=== PATIENT | female | born 1950 | race Caucasian/White ===

== ENCOUNTER → 2016-09-24 | Outpatient (CLI) | payer BC, OTHER ==
[~2016-09-24] MED LIST: ALBUAER2 INH; ASPCH81X PO; CHOL100010 PO; FURO20TA PO; LOSA1TAB PO; METO50TA7 PO; PANT40TA PO; POTA10TA PO; SPIR25TA PO
--- NOTE | 2016-09-24 11:47 | DIAGNOSTIC IMAGING REPORT ---
ULTRASOUND VENOUS DOPPLER LWR EXT BILA CLINICAL HISTORY: Bilateral leg swelling COMPARISON STUDY: No previous studies for comparison. FINDINGS: Real-time and color flow Doppler imaging were performed. Flow was seen within the femoral, popliteal and calf veins with no intraluminal thrombus demonstrated. The saphenous vein is patent. IMPRESSION: No evidence of lower extremity DVT. Electronically signed by: Lonny Bryan M.D. 09/24/2016 11:46 AM Dictated Date/Time: 09/24/2016 11:45 AM
--- NOTE | 2016-09-24 11:50 | DIAGNOSTIC IMAGING REPORT ---
Ultrasound right ankle RIGHT EXTREMITY NONVASCULAR LIMITED CLINICAL HISTORY: EDEMA/ANKLE MASS Right edema TECHNIQUE: Ultrasound COMPARISON STUDY: None FINDINGS: Soft tissue edema with a trace amount of free fluid at the medial aspect of the right ankle. A significant drainable abscess or collection is not appreciated. The small fluid pocket measures 1.4 x 0.3 cm. IMPRESSION: Generalized soft tissue edema about the right ankle with moderate fluid within the soft tissues adjacent to the medial malleolus. Electronically signed by: Andrez Saba M.D. 09/24/2016 11:49 AM Dictated Date/Time: 09/24/2016 11:47 AM
--- NOTE | 2016-09-24 11:52 | DIAGNOSTIC IMAGING REPORT ---
LEFT ANKLE SWELLING CLINICAL HISTORY: EDEMA/ANKLE MASS COMPARISON STUDY: No previous studies for comparison. FINDINGS: Ultrasonographic evaluation of the soft tissues of the left ankle were performed with attention to the areas of reported swelling. No ultrasonographic masses were delineated. If a clinically suspicious mass is palpated, an MRI could be obtained in follow-up. IMPRESSION: No focal masses or fluid collections were visualized ultrasonographically. Electronically signed by: Lonny Bryan M.D. 09/24/2016 11:50 AM Dictated Date/Time: 09/24/2016 11:48 AM
== END | disposition home or self-care (01) ==
LOC: C.ULTRBC 10:20
PROVIDERS: ATTEND Internal Medicine
DX: R22.43 Localized swelling, mass and lump, lower limb, bilateral (principal)

== ENCOUNTER → 2016-10-11 | Outpatient (CLI) | payer OTHER ==
[2016-10-11 13:28] LABS: BASO % 1.1 %; BASO ABS # 0.05 K/uL (0-0.2); EOS % 2.4 %; HEMATOCRIT 35.4 % (37-47); IG% 0.2 %; LYMPH % 33.7 %; LYMPH ABS # 1.55 K/uL (1.2-3.4); MEAN CELL VOLUME 66.5 fL (80-100); MEAN CORPUSCULAR HEMOGLOBIN 21.2 pg (25-34); MEAN CORPUSCULAR HGB CONC 31.9 g/dl (32-36); MONO % 12.4 %; NEUT % 50.2 %; PLATELET COUNT 236 K/uL (130-400); RED BLOOD COUNT 5.32 M/uL (4.2-5.4)
[2016-10-11 13:48] LABS: C-REACTIVE PROTEIN < 0.29 mg/dl (0-0.29); RHEUMATOID FACTOR < 10.0 U/mL (0-15)
[2016-10-11 14:02] LABS: COMPLETE YES; MICROCYTOSIS PRESENT; OVALOCYTES 1+
[2016-10-11 15:00] LABS: LYME DISEASE AB IGG NEG (NEG)
[2016-10-11 15:04] LABS: LYME DISEASE AB IGM NEG (NEG)
[2016-10-14 20:19] LABS: HLA-B27** TC 528X NEGATIVE (NEGATIVE)
== END | disposition home or self-care (01) ==
LOC: C.LABBC 09:34
PROVIDERS: ATTEND Orthopaedic Surgery Sports Medicine
DX: M25.572 Pain in left ankle and joints of left foot (principal); M25.571 Pain in right ankle and joints of right foot; R60.0 Localized edema

== ENCOUNTER → 2016-10-16 | Outpatient (CLI) | payer OTHER ==
--- NOTE | 2016-10-16 09:37 | DIAGNOSTIC IMAGING REPORT ---
RIGHT LOWER EXT JOINT WITHOUT CLINICAL HISTORY: RT ANKLE PAIN/SWELLING Right pain. Edema. TECHNIQUE: Multiaxial MRI acquisition COMPARISON STUDY: None FINDINGS: Signal characteristics the osseous structures are unremarkable. Minimal degenerative changes of the intertarsal joints. Medial and lateral collateral ligament structures are intact. Articular services appears intact the level of the talar dome. All components of the medial aspect of the ankle. A be intact. There are findings of moderate tendinopathy of the peroneal tendon. This shows a potential small partial intrasubstance tear at its distal margin. Air is no evidence for complete tear. Moderate edematous change of the interosseous ligament of the subtalar joint. Minimal reactive soft tissue edema about the ankle. IMPRESSION: 1. Moderate peroneal tendinopathy 2. Small partial intrasubstance tear as distal aspect. 3. No evidence for full-thickness tear 4. Minimal reactive soft tissue edema The above report was generated using voice recognition software. It may contain grammatical, syntax or spelling errors. Electronically signed by: Andrez Saba M.D. 10/16/2016 9:36 AM Dictated Date/Time: 10/16/2016 9:31 AM
== END | disposition home or self-care (01) ==
LOC: C.MRIBC 08:44
PROVIDERS: ATTEND Orthopaedic Surgery
DX: M25.571 Pain in right ankle and joints of right foot (principal); M76.71 Peroneal tendinitis, right leg; S86.311A Strain of muscle(s) and tendon(s) of peroneal muscle group at lower leg level, right leg, initial encounter; X58.XXXA Exposure to other specified factors, initial encounter

== ENCOUNTER → 2017-03-26 | Outpatient (CLI) | payer OTHER ==
[~2017-03-26] MED LIST changes: +GADAVIST IV PRN; -METO50TA7 PO; +METO50TA8 PO
--- NOTE | 2017-03-26 14:31 | DIAGNOSTIC IMAGING REPORT ---
MRI OF THE ABDOMEN WITH AND WITHOUT CONTRAST RENAL PROTOCOL CLINICAL HISTORY: Right renal mass on ultrasound. Right flank pain. COMPARISON STUDY: Right upper quadrant ultrasound March 04, 2008. TECHNIQUE: Utilizing a 1.5 Arlyn magnet and dedicated coil, multiplanar, multiecho imaging of the abdomen was performed pre and postcontrast administration with specific attention to the kidneys. Injection of 8.5 cc of Gadavist IV was uneventful. Postcontrast imaging was performed utilizing dynamic enhancement. FINDINGS: Note is made of a 1.8 cm T2 hyperintense nonenhancing lesion arising from the upper pole of the right kidney. This consistent with a cyst. 2 additional nonenhancing right renal lesions measure up to 6 mm and are consistent with small right renal cysts. There is no enhancing renal lesion. No hydronephrosis is present. Fatty infiltration of the liver is noted. No lesions are identified within visualized portions of the liver. The spleen, adrenal glands and pancreas are unremarkable. There is no biliary or pancreatic ductal dilatation. The gallbladder is surgically absent. There is no abdominal lymphadenopathy or ascites. Caliber of visualized small and large bowel is normal. No suspicious marrow replacement is identified. IMPRESSION: 1. 1.8 cm cyst within the upper pole of the right kidney with two additional subcentimeter right lower pole renal cysts. No solid renal lesions. 2. Fatty infiltration of the liver. Electronically signed by: Gallito Sharma M.D. 03/26/2017 2:30 PM Dictated Date/Time: 03/26/2017 2:20 PM
== END | disposition home or self-care (01) ==
LOC: C.MRI 13:16
PROVIDERS: ATTEND Internal Medicine
DX: N28.1 Cyst of kidney, acquired (principal); K76.0 Fatty (change of) liver, not elsewhere classified